=== PATIENT | female | born 1985 | race American Indian/Alaskan Native ===

== ENCOUNTER 2021-07-10 08:41 | Emergency (ER) | payer MEDICAID ==
--- NOTE | 2021-07-10 09:44 | Emergency Department Report ---
ED Female HPI - General Chief complaint: Urogenital-Female Stated complaint: UTI/BLADDER INFECTION Time Seen by Provider: 07/10/21 09:42 Source: patient Mode of arrival: Ambulatory Limitations: No Limitations - History of Present Illness Initial comments: 35-year-old -[place] female presents to the emergency room complaining of urinary urgency and frequency. Patient states she feels she has a urinary tract infection. She does admit to some dysuria but has improved since she started [id number] AZO. Patient denies any lower abdominal pain. She is currently on control last menstrual period around June 15. Denies any fever chills no nausea no vomiting no abdominal pain. MD Complaint: dysuria -: Last night Consistency: constant Are you Now?: No Last Menstrual Period: 06/15/21 EDC: 03/22/22 Associated Symptoms: denies: abdominal pain, nausea/vomiting, fever/chills, hematuria - Related Data Sexually active: Yes : 5 Para: 5 Previous Rx's Medication Instructions Recorded Last Taken Type Fluconazole [Diflucan TAB] 100 mg PO QDAY #1 tablet 07/10/21 Unknown Rx Nitrofurantoin [place]/M-Cryst 100 mg PO Q12HR 7 Days #14 capsule 07/10/21 Unknown Rx [Macrobid CAP] Allergies Allergy/AdvReac Type Severity Reaction Status Date / Time No Known Allergies Allergy Unverified 07/10/21 08:47 ED Review of Systems ROS: Stated complaint: UTI/BLADDER INFECTION Other details as noted in HPI Comment: All other systems reviewed and negative ED Past Medical Hx - Past Medical History Previous Medical History?: No - Surgical History Past Surgical History?: No - Medications Home Medications: Home Medications Medication Instructions Recorded Confirmed Last Taken Type Fluconazole [Diflucan TAB] 100 mg PO QDAY #1 tablet 07/10/21 Unknown Rx Nitrofurantoin [place]/M-Cryst 100 mg PO Q12HR 7 Days #14 capsule 07/10/21 Unknown Rx [Macrobid CAP] ED Physical Exam - General Limitations: No Limitations General appearance: alert, in no apparent distress - Head Head exam: Present: atraumatic, normocephalic - Eye Eye exam: Present: normal appearance - ENT ENT exam: Present: mucous membranes moist - Neck Neck exam: Present: normal inspection - Respiratory Respiratory exam: Present: normal lung sounds bilaterally. Absent: respiratory distress - Cardiovascular Cardiovascular Exam: Present: regular rate, normal rhythm. Absent: systolic murmur, diastolic murmur, rubs, gallop - GI/Abdominal GI/Abdominal exam: Present: soft, normal bowel sounds - Extremities Exam Extremities exam: Present: normal inspection - Back Exam Back exam: Present: normal inspection - Neurological Exam Neurological exam: Present: alert, oriented X3 - Psychiatric Psychiatric exam: Present: normal affect, normal mood - Skin Skin exam: Present: warm, dry, intact, normal color. Absent: rash ED Medical Decision Making - Medical Decision Making 35-year-old -[place] female presents to the emergency room complaining of urinary urgency and frequency. Patient states she feels she has a urinary tract infection. She does admit to some dysuria but has improved since she started [id number] AZO. Patient denies any lower abdominal pain. She is currently on control last menstrual period around June 15. Denies any fever chills no nausea no vomiting no abdominal pain. Urinalysis is positive for urinary tract infection. Patient be placed on Macrobid 100 mg p.o. twice daily for 7 days. Patient requests Diflucan as she gets yeast infections when she is on antibiotics. Prescription for Diflucan 100 mg p.o. x1. Discussed with patient to increase her fluid intake advance her diet as tolerated. Void after intercourse increase her water avoid sugary drinks. Patient verbalized understanding Critical care attestation.: If time is entered above; I have spent that time in minutes in the direct care of this critically ill patient, excluding procedure time. ED Disposition Clinical Impression: UTI (urinary tract infection) Disposition: 01 HOME / SELF CARE / HOMELESS Is pt being admited?: No Does the pt Need Aspirin: No Condition: Stable Instructions: Urinary Tract Infection, Adult, [id number] Additional Instructions: Complete antibiotics as prescribed. Tylenol or ibuprofen as needed for pain. Increase your fluid intake advance your diet as tolerated. Prescriptions: Fluconazole [Diflucan TAB] 100 mg PO QDAY #1 tablet Nitrofurantoin [place]/M-Cryst [Macrobid CAP] 100 mg PO Q12HR 7 Days #14 capsule Referrals: PRIMARY CARE, [Primary Care Provider] - 3-5 Days
[2021-07-10 09:47] LABS: Bacteria,Urine 1+ /HPF (Negative); Bilirubin,Urine NEG (Negative); Blood,Urine SM (Negative); Color,Urine Yellow (Yellow); Mucus,Urine 3+ /HPF; Urobilinogen,Urine < 2.0 mg/dL (<2.0)
[2021-07-10 10:40] VITALS: BP 104/70
== END 2021-07-10 10:38 | disposition home or self-care (01) ==
LOC: ED 08:41
DX: N39.0 Urinary tract infection, site not specified (principal); Z79.899 Other long term (current) drug therapy
CPT/HCPCS: 81001; 87076; 87086; 87186